=== PATIENT | female | born 1960 | race Caucasian/White ===

== ENCOUNTER → 2016-10-23 | Outpatient (CLI) | payer BC, OTHER | END | disposition home or self-care (01) | LOC: RAD.S 14:55 | DX: M54.5 Low back pain (principal); M47.816 Spondylosis without myelopathy or radiculopathy, lumbar region ==

== ENCOUNTER → 2016-11-03 | Outpatient (CLI) | payer BC, OTHER | END | disposition home or self-care (01) | LOC: RAD.S 13:12 | DX: M54.41 Lumbago with sciatica, right side (principal); M51.26 Other intervertebral disc displacement, lumbar region; M48.06 Spinal stenosis, lumbar region ==